=== PATIENT | male | born 1940 | race Caucasian/White ===

== ENCOUNTER → 2023-08-30 11:07 | Outpatient (REF) | payer MEDICARE, OTHER, SELFPAY ==
[2023-08-30 12:07] LABS: % Basophils 0.6 % (0-2); % Eosinophils 0.8 % (0-6); % Immature Granulocytes 0.2 % (0-0.5); % Lymphocytes 26.8 % (20.5-51.1); % Neutrophils 60.6 % (42.2-75.2); Absolute Lymphocytes 1.3 10^3/uL (1.2-3.4); Absolute Monocytes 0.5 10^3/uL (0.1-0.6); Absolute Neutrophils 2.9 10^3/uL (1.4-6.5); Hematocrit 49.2 % (39.0-52.0); Hemoglobin 17.5 g/dL (13.0-18.0); Mean Corp Hgb Conc. 35.6 g/dL (33.0-37.0); Mean Corpuscular Volume 87.1 fL (80.0-94.0); Mean Platelet Volume 10.1 fL (7.4-10.4); Nucleated Red Blood Cells % 0 % (-); Platelet Count 186 10^3/uL (130-400); Red Blood Cell Count 5.65 10^6/uL (4.70-6.10); Red Cell Dist. Width 12.8 % (11.5-14.5); White Blood Cell Count 4.7 10^3/uL (4.8-10.8)
[2023-08-30 13:12] LABS: ALT (SGPT) 22 U/L (0-50); AST (SGOT) 26 U/L (17-59); Albumin 4.4 g/dl (3.5-5.0); Alkaline Phosphatase 75 U/L (38-126); Blood Urea Nitrogen 18 mg/dl (9-20); Calcium 9.8 mg/dl (8.4-10.2); Carbon Dioxide 28 mmol/L (22-30); Chloride 97 mmol/L (98-107); Glucose 102 mg/dl (70-99); HDL Cholesterol 49 mg/dl; LDL Cholesterol, Calculated 71 mg/dl; Potassium 4.8 mmol/L (3.5-5.1); Sodium 132 mmol/L (135-145); Total Bilirubin 1.1 mg/dl (0.2-1.3); Total Cholesterol 132 mg/dl (50-199); Triglyceride 60 mg/dl (10-149); Uric Acid 6.2 mg/dl (3.5-8.5); Very Low Density Lipoprotein 12 mg/dl (0-30); eGFR > 60.00
[2023-08-30 13:24] LABS: Vitamin D, 25-OH*** 77.2 ng/mL (30-80)
[2023-08-30 13:36] LABS: PSA, Total - Screen 1.72 ng/ml (0.0-4.0)
[2023-08-30 15:15] LABS: Urine Albumin Trace (Neg - Trace); Urine Bilirubin Negative (Negative); Urine Character Clear (Clear); Urine Color Yellow; Urine Glucose Negative (Negative); Urine Ketone Negative (Negative); Urine Leukocyte Negative (Negative); Urine Nitrite Negative (Negative); Urine Occult Blood Negative (Negative); Urine Specific Gravity 1.015 (<1.030); Urine Urobilinogen Negative (Neg - 1+); Urine pH 6.5 (5.0-9.0)
== END ==
LOC: REG 11:07
PROVIDERS: ATTENDING PHYSICIAN Internal Medicine Geriatric Medicine
DX: Z79.899 Other long term (current) drug therapy (principal); E78.2 Mixed hyperlipidemia; M10.00 Idiopathic gout, unspecified site; I10 Essential (primary) hypertension; I48.0 Paroxysmal atrial fibrillation; I25.10 Atherosclerotic heart disease of native coronary artery without angina pectoris; E55.9 Vitamin D deficiency, unspecified; Z12.5 Encounter for screening for malignant neoplasm of prostate
CPT/HCPCS: 36415; 80053; 80061; 81003; 82306; 84550; 85025; G0103

== ENCOUNTER → 2024-02-26 11:12 | Outpatient (REF) | payer MEDICARE, OTHER, SELFPAY ==
[2024-02-26 12:22] LABS: % Basophils 0.7 % (0-2); % Eosinophils 0.5 % (0-6); % Immature Granulocytes 0.2 % (0-0.5); % Lymphocytes 25.9 % (20.5-51.1); % Monocytes 11.4 % (1.7-9.3); % Neutrophils 61.3 % (42.2-75.2); Absolute Lymphocytes 1.1 10^3/uL (1.2-3.4); Absolute Monocytes 0.5 10^3/uL (0.1-0.6); Absolute Neutrophils 2.7 10^3/uL (1.4-6.5); Hematocrit 46.8 % (39.0-52.0); Hemoglobin 16.3 g/dL (13.0-18.0); Mean Corp Hgb Conc. 34.8 g/dL (33.0-37.0); Mean Corpuscular Hgb 30.1 pg (27.0-31.0); Mean Corpuscular Volume 86.3 fL (80.0-94.0); Mean Platelet Volume 9.8 fL (7.4-10.4); Nucleated Red Blood Cells % 0 % (-); Platelet Count 173 10^3/uL (130-400); Red Blood Cell Count 5.42 10^6/uL (4.70-6.10); Red Cell Dist. Width 13.3 % (11.5-14.5); White Blood Cell Count 4.4 10^3/uL (4.8-10.8)
[2024-02-26 12:36] LABS: Urine Albumin Negative (Neg - Trace); Urine Bilirubin Negative (Negative); Urine Character Clear (Clear); Urine Color Yellow; Urine Glucose Negative (Negative); Urine Ketone Negative (Negative); Urine Leukocyte Negative (Negative); Urine Nitrite Negative (Negative); Urine Occult Blood Negative (Negative); Urine Urobilinogen Negative (Neg - 1+)
[2024-02-26 12:52] LABS: ALT (SGPT) 20 U/L (0-50); AST (SGOT) 22 U/L (17-59); Albumin 4.3 g/dl (3.5-5.0); Alkaline Phosphatase 69 U/L (38-126); Blood Urea Nitrogen 18 mg/dl (9-20); Calcium 9.4 mg/dl (8.4-10.2); Carbon Dioxide 29 mmol/L (22-30); Chloride 96 mmol/L (98-107); Glucose 103 mg/dl (70-99); HDL Cholesterol 54 mg/dl; LDL Cholesterol, Calculated 76 mg/dl; Potassium 4.4 mmol/L (3.5-5.1); Sodium 132 mmol/L (135-145); Total Bilirubin 1.3 mg/dl (0.2-1.3); Total Cholesterol 141 mg/dl (50-199); Total Protein 6.5 g/dl (6.3-8.2); Triglyceride 55 mg/dl (10-149); Very Low Density Lipoprotein 11 mg/dl (0-30); eGFR > 60.00
[2024-02-26 13:02] LABS: Vitamin D, 25-OH*** 73.9 ng/mL (30-80)
== END ==
LOC: REG 11:12
PROVIDERS: ATTENDING PHYSICIAN Internal Medicine Geriatric Medicine
DX: Z00.00 Encounter for general adult medical examination without abnormal findings (principal); Z79.899 Other long term (current) drug therapy; E87.1 Hypo-osmolality and hyponatremia; R73.01 Impaired fasting glucose; R79.89 Other specified abnormal findings of blood chemistry; I10 Essential (primary) hypertension; I48.0 Paroxysmal atrial fibrillation; I25.10 Atherosclerotic heart disease of native coronary artery without angina pectoris; E78.2 Mixed hyperlipidemia; E55.9 Vitamin D deficiency, unspecified
CPT/HCPCS: 36415; 80053; 80061; 81003; 82306; 85025

== ENCOUNTER 2024-04-15 22:35 | Emergency (ER) | payer MEDICARE, OTHER, SELFPAY ==
[2024-04-15 22:38] VITALS: BP 125/55
--- NOTE | 2024-04-15 23:43 | ED.GENMED ---
History of Present Illness
General
Chief Complaint: Cold/Flu/URI Symptoms
Source: patient and ambulance crew
Exam Limitations: none
Time Seen by Provider: 04/15/24 23:23
Nursing documentation reviewed up to this point in time: agreed with
History of Present Illness
History of Present Illness:
83-year-old male presents emergency room complaining of generalized fatigue, testing positive for COVID today. He felt symptoms on Saturday, and was having coughing as well after a trip to [place].
Past History
Past History
ED Past Medical History: Arrthythmia (Atrial fibrillation) and HTN
ED Past Surgical History: Cardiac (Angioplasty with stent) and Other (Cataract removal both eyes)
Social History
Tobacco: Non-smoker
Alcohol: None
Drug: None
Personal:
Living: with family
Employment: Retired
Review of Systems
Review of Systems
Allergies reviewed?: Yes
All Other Systems: Not applicable
Constitutional: Reports fatigue
EENT: Reports no symptoms
Respiratory: Reports cough
Cardiac: Reports no symptoms
ABD/GI: Reports no symptoms
: Reports no symptoms
Musculoskeletal: Reports no symptoms
Skin: Reports no symptoms
Neurological: Reports no symptoms
Endocrine: Reports no symptoms
Hematologic/Lymphatic: Reports no symptoms
Psychiatric: Reports no symptoms
Phy Exam
Physical Exam
Physical Exam:
Physical Exam
General: no apparent distress, not acutely ill
Neck: supple. no meningeal signs. normal posterior pharynx
Heart: s1/s2 regular rate and rhythm, no murmur. equal radial
pulses.
HEENT: Pupils equal round reactive to light, EOMI
Lungs: no acute respiratory distress. clear bilaterally
Abdomen: normal bowel sounds. not tender. no CVAT
Neuro: alert and oriented. no focal neurological deficits cranial nerves II through XII intact
Skin: no rash
Psychiatric: well kept. interactive and cooperative
Extremities: no edema. no calf tenderness. negative homans. good distal pulses
Course
Vital Signs
Initial and Last Documented VS:
Initial Vital Signs
Temp Pulse Resp BP Pulse Ox
98.9 F 85 17 125/55 95
04/15/24 22:38 04/15/24 22:38 04/15/24 22:38 04/15/24 22:38 04/15/24 22:38
Last Documented Vital Signs
Temp Pulse Resp BP Pulse Ox
98.9 F 85 17 125/55 95
04/15/24 22:38 04/15/24 22:38 04/15/24 22:38 04/15/24 22:38 04/15/24 22:38
MDM/Problems Addressed
Differential Diagnosis Includes:
Pneumonia, hypoxia
MDM/Problems Addressed:
83-year-old male with symptomatic COVID. Ambulates without difficulty. Does feel better at this time. No hypoxia apnea. Stable for discharge. Paxlovid not indicated due to patient's amiodarone and Xarelto.
Chronic conditions affecting care: HTN and Arrhythmia
Acute Exacerbation and/or Progression of Chronic Illness: HTN and Arrhythmia
*Pulse Oximetry
Patient hypoxic: no
*Critical Care Note
Total Time (30-74mins, 75-104mins- exclusive of procedures): Not Applicable
Patient Management
Social determinants of health affecting care: Living situation
Escalation/DeEscalation of care consider admission/obs:
Admit not indicated
ED Attending Note
-
Portions of this chart may have been created with voice recognition software.� Occasional wrong word or��sound alike� substitutions may have occurred due to the inherent limitations of voice recognition software.
Discharge Plan
Departure
Patient Disposition: Home (Routine Discharge)
Date of Disposition: 04/16/24
Time of Disposition: 00:36
Patient with high blood pressure during this ER visit?: Yes
Condition: Good
Covid-19: Confirmed COVID-19
Discharge Problem:
COVID-19
Instructions: Coronavirus Home Quarantine, BLOOD PRESSURE
Prescriptions:
New
albuterol sulfate 90 mcg/actuation HFA aerosol inhaler
2 puff inhalation Q6H PRN (Reason: shortness of breath or wheezing) Qty: 8.5 0RF
No Action
multivitamin [Daily Multiple] 1 EACH tablet
1 ea PO DAILY
hydrocortisone [Proctosol HC] 28.35 GM cream with perineal applicator
28.35 gm topical PRN PRN (Reason: for hemmorhoid)
Patient Comments:
taken as needed, last about 3 months ago
calcium carbonate 600 MG tablet
600 mg PO DAILY
ascorbic acid (vitamin C) [Vitamin C] 500 MG tablet
500 mg PO DAILY
cholecalciferol (vitamin D3) [Vitamin D3] 1,000 UNIT capsule
1,000 unit PO DAILY
atorvastatin 40 MG tablet
40 mg PO QPM Qty: 90 3RF
aspirin 81 MG tablet,delayed release (DR/EC)
81 mg PO DAILY 0RF
metoprolol succinate 25 MG tablet extended release 24 hr
25 mg PO DAILY Qty: 90 3RF
acetaminophen 325 MG tablet
650 mg PO Q6HPRN PRN (Reason: mild to moderate pain) 0RF
polyethylene glycol 3350 17 GRAMS powder in packet
17 grams PO DAILY 0RF
amiodarone [Pacerone] 200 MG tablet
200 mg PO BID Qty: 60 1RF
Rx Instructions:
take twice daily for the next 2 weeks (until 03/29), then daily until otherwise directed by your doctor.
sennosides-docusate sodium 1 TABLET tablet
1 tab PO Q12 0RF
oxycodone 5 MG tablet
5 mg PO Q6HPRN PRN (Reason: moderate to severe pain) Qty: 30 0RF
rivaroxaban [Xarelto] 20 MG tablet
20 mg PO QPM Qty: 30 3RF
furosemide 40 MG tablet
40 mg PO DAILY Qty: 5 0RF
Rx Instructions:
take for 5 days then stop unless otherwise directed
potassium chloride [Klor-Con M20] 20 MEQ tablet,ER particles/crystals
20 meq PO DAILY Qty: 5 0RF
Rx Instructions:
take for 5 days with lasix then stop
docusate sodium [Colace] 100 MG capsule
100 mg PO Daily Qty: 30 0RF
hydrocortisone acetate 25 MG suppository
25 mg KS BID Qty: 20 0RF
polyethylene glycol 3350 17 GRAMS powder in packet
17 grams PO DAILY Qty: 6 0RF
Referrals:
Calos Davis MD [Family Provider] - Call in 1-3 days for appt
Interventions
Interventions:
*Risk Screen - Suicide Last Done: 04/15/24 22:38
*General Assessment Last Done: 04/15/24 22:38
*Neglect/Abuse Screening Last Done: 04/15/24 22:38
Discharge Date and Time
Print Language: AZERI
[2024-04-16 01:00] VITALS: BP 110/58
== END 2024-04-16 01:12 | disposition home or self-care (01) ==
LOC: EMR 22:35
PROVIDERS: EMERGENCY PHYSICIAN Emergency Medicine; FAMILY PHYSICIAN Internal Medicine Geriatric Medicine
DX: U07.1 COVID-19 (principal); R53.1 Weakness; R53.83 Other fatigue; I10 Essential (primary) hypertension; I48.91 Unspecified atrial fibrillation; I25.10 Atherosclerotic heart disease of native coronary artery without angina pectoris; E78.5 Hyperlipidemia, unspecified; M10.9 Gout, unspecified; K21.9 Gastro-esophageal reflux disease without esophagitis; I25.2 Old myocardial infarction; Z79.82 Long term (current) use of aspirin; Z95.5 Presence of coronary angioplasty implant and graft; Z87.01 Personal history of pneumonia (recurrent)
CPT/HCPCS: 99283

== ENCOUNTER → 2024-12-31 15:46 | Outpatient (REF) | payer MEDICARE, OTHER, SELFPAY | LOC: RAD 15:46 | PROVIDERS: ATTENDING PHYSICIAN Nurse Practitioner Adult Health | DX: M25.571 Pain in right ankle and joints of right foot (principal) | CPT/HCPCS: 73610 ==

== ENCOUNTER → 2025-01-22 14:07 | Outpatient (REF) | payer MEDICARE, OTHER, SELFPAY ==
[2025-01-22 15:23] LABS: ALT (SGPT) 25 U/L (0-50); AST (SGOT) 23 U/L (17-59); Albumin 4.3 g/dl (3.5-5.0); Alkaline Phosphatase 74 U/L (38-126); Blood Urea Nitrogen 28 mg/dl (9-20); Calcium 9.6 mg/dl (8.4-10.2); Carbon Dioxide 26 mmol/L (22-30); Chloride 100 mmol/L (98-107); Glucose 94 mg/dl (70-99); Potassium 4.7 mmol/L (3.5-5.1); Sodium 131 mmol/L (135-145); Total Protein 6.6 g/dl (6.3-8.2); eGFR > 60.00
== END ==
LOC: REG 14:07
PROVIDERS: ATTENDING PHYSICIAN Nurse Practitioner Adult Health
DX: R60.0 Localized edema (principal); I48.0 Paroxysmal atrial fibrillation; I25.10 Atherosclerotic heart disease of native coronary artery without angina pectoris
CPT/HCPCS: 36415; 71046; 80053; 83880

== ENCOUNTER → 2025-02-01 13:25 | Outpatient (REF) | payer MEDICARE, OTHER, SELFPAY ==
[2025-02-01 14:51] LABS: Blood Urea Nitrogen 25 mg/dl (9-20); Calcium 9.6 mg/dl (8.4-10.2); Carbon Dioxide 28 mmol/L (22-30); Chloride 97 mmol/L (98-107); Glucose 105 mg/dl (70-99); Potassium 4.3 mmol/L (3.5-5.1); Sodium 131 mmol/L (135-145); eGFR > 60.00
== END ==
LOC: REG 13:25
PROVIDERS: ATTENDING PHYSICIAN Nurse Practitioner Adult Health; FAMILY PHYSICIAN Internal Medicine Geriatric Medicine
DX: E87.1 Hypo-osmolality and hyponatremia (principal); R60.0 Localized edema
CPT/HCPCS: 36415; 72110; 80048

== ENCOUNTER → 2025-03-01 11:44 | Outpatient (REF) | payer MEDICARE, OTHER, SELFPAY ==
[2025-03-01 12:54] LABS: Hematocrit 47.0 % (39.0-52.0); Hemoglobin 16.0 g/dL (13.0-18.0); Mean Corp Hgb Conc. 34.0 g/dL (33.0-37.0); Mean Corpuscular Volume 88.3 fL (80.0-94.0); Nucleated Red Blood Cells % 0 % (-); Platelet Count 170 10^3/uL (130-400); Red Cell Dist. Width 13.2 % (11.5-14.5)
[2025-03-01 12:57] LABS: Urine Character Clear (Clear)
[2025-03-01 13:14] LABS: Glycohemoglobin (HgbA1c) 5.5 % (4.0-5.6)
[2025-03-01 13:33] LABS: ALT (SGPT) 21 U/L (0-50); AST (SGOT) 21 U/L (17-59); Albumin 4.6 g/dl (3.5-5.0); Alkaline Phosphatase 70 U/L (38-126); Blood Urea Nitrogen 25 mg/dl (9-20); Calcium 9.6 mg/dl (8.4-10.2); Carbon Dioxide 31 mmol/L (22-30); Chloride 98 mmol/L (98-107); Glucose 101 mg/dl (70-99); HDL Cholesterol 49 mg/dl; LDL Cholesterol, Calculated 81 mg/dl; Potassium 4.7 mmol/L (3.5-5.1); Sodium 135 mmol/L (135-145); Total Protein 6.9 g/dl (6.3-8.2); Very Low Density Lipoprotein 9 mg/dl (0-30); eGFR > 60.00
[2025-03-01 13:47] LABS: Vitamin D, 25-OH*** 72.9 ng/mL (30-80)
== END ==
LOC: REG 11:44
PROVIDERS: ATTENDING PHYSICIAN Internal Medicine Geriatric Medicine
DX: I10 Essential (primary) hypertension (principal); E78.2 Mixed hyperlipidemia; E55.9 Vitamin D deficiency, unspecified; R73.01 Impaired fasting glucose
CPT/HCPCS: 36415; 80053; 80061; 81003; 82306; 83036; 85025

== ENCOUNTER → 2025-06-17 14:30 | Outpatient (REF) | payer MEDICARE, OTHER, SELFPAY ==
[2025-06-17 15:49] LABS: Hematocrit 47.8 % (39.0-52.0); Hemoglobin 16.0 g/dL (13.0-18.0); Mean Corp Hgb Conc. 33.5 g/dL (33.0-37.0); Mean Corpuscular Volume 91.9 fL (80.0-94.0); Nucleated Red Blood Cells % 0 % (-); Platelet Count 192 10^3/uL (130-400); Red Cell Dist. Width 12.7 % (11.5-14.5)
[2025-06-17 15:51] LABS: Urine Character Clear (Clear)
[2025-06-17 16:04] LABS: Urine Squamous Cell 0-2 /LPF (Few)
[2025-06-17 16:05] LABS: Urine Red Blood Cell 0-2 /HPF (0-2); Urine White Cell 0-2 /HPF (0-5)
[2025-06-17 16:28] LABS: ALT (SGPT) 25 U/L (0-50); AST (SGOT) 24 U/L (17-59); Albumin 4.4 g/dl (3.5-5.0); Alkaline Phosphatase 86 U/L (38-126); Blood Urea Nitrogen 28 mg/dl (9-20); Calcium 9.6 mg/dl (8.4-10.2); Carbon Dioxide 31 mmol/L (22-30); Chloride 97 mmol/L (98-107); Glucose 81 mg/dl (70-99); HDL Cholesterol 46 mg/dl; LDL Cholesterol, Calculated 70 mg/dl; Potassium 4.5 mmol/L (3.5-5.1); Sodium 133 mmol/L (135-145); Total Protein 7.0 g/dl (6.3-8.2); Uric Acid 5.6 mg/dl (3.5-8.5); Very Low Density Lipoprotein 22 mg/dl (0-30); Vitamin D, 25-OH*** 69.7 ng/mL (30-80); eGFR 59.63
== END ==
LOC: REG 14:30
PROVIDERS: ATTENDING PHYSICIAN Internal Medicine Nephrology; FAMILY PHYSICIAN Internal Medicine Geriatric Medicine
DX: E87.1 Hypo-osmolality and hyponatremia (principal); I10 Essential (primary) hypertension; E78.2 Mixed hyperlipidemia; I48.0 Paroxysmal atrial fibrillation; I25.10 Atherosclerotic heart disease of native coronary artery without angina pectoris; E66.9 Obesity, unspecified; E55.9 Vitamin D deficiency, unspecified; I11.9 Hypertensive heart disease without heart failure; Z13.31 Encounter for screening for depression; M54.41 Lumbago with sciatica, right side; M54.42 Lumbago with sciatica, left side; R10.32 Left lower quadrant pain
CPT/HCPCS: 36415; 80053; 80061; 81003; 81015; 82306; 83930; 83935; 84300; 84550; 85025

== ENCOUNTER → 2025-06-29 16:14 | Outpatient (REF) | payer MEDICARE, OTHER, SELFPAY | LOC: RAD 16:14 | PROVIDERS: ATTENDING PHYSICIAN Internal Medicine Geriatric Medicine | DX: R10.32 Left lower quadrant pain (principal) | CPT/HCPCS: 72193; Q9967 ==